=== PATIENT | male | born 1970 | race American Indian/Alaskan Native ===

== ENCOUNTER 2017-12-14 19:33 | Inpatient (IN) | payer OTHER ==
--- NOTE | 2017-12-14 20:45 | XRay Report ---
FINAL REPORT EXAM: XR KNEE BILAT 3V HISTORY: knee pain TECHNIQUE: Three views of the left knee PRIORS: None. FINDINGS: There is superior migration of the patella. Infrapatellar tendon is indistinct in wavy in appearance most consistent with tendon rupture. No acute fracture identified. No evidence for joint effusion. Tibiofemoral joint space is unremarkable. IMPRESSION: Findings consistent with rupture of the infrapatellar tendon with patella Khushboo
--- NOTE | 2017-12-14 21:12 | Emergency Department Report ---
HPI - General Chief Complaint: Pain General Time Seen by Provider: 12/14/17 19:56 - HPI HPI: 47-year-old -[place] male presents to the emergency department via EMS with complaint of bilateral knee pain and swelling. The patient was trying to push his car down the street when one of his knee suddenly gave way and he felt and heard a pop. Someone was helping him to move the car and this gentleman helped him off of the ground and he was trying to "walk it off." However when he started to try and push the car again, the other knee then gave way with another pop felt and heard. He received some morphine in route with some improvement. The pain mostly occurs when he is bending at the knee or moving his legs. He denies any other significant past medical history. ED Past Medical Hx - Past Medical History Previous Medical History?: No - Surgical History Past Surgical History?: No - Social History Smoking Status: Never Smoker ED Review of Systems ROS: Stated complaint: ASMITA KNEE PAIN Other details as noted in HPI Comment: All other systems reviewed and negative Constitutional: denies: chills, fever Eyes: denies: eye pain, eye discharge, vision change ENT: denies: ear pain, throat pain Respiratory: denies: cough, shortness of breath, wheezing Cardiovascular: denies: chest pain, palpitations Gastrointestinal: denies: abdominal pain, nausea, diarrhea Genitourinary: denies: urgency, dysuria Musculoskeletal: arthralgia. denies: back pain, joint swelling Skin: denies: rash, lesions Neurological: denies: headache, weakness, paresthesias Physical Exam - Physical Exam Vital Signs: Vital Signs 12/14/17 12/14/17 20:01 20:11 Temperature 98.6 F Pulse Rate 82 Respiratory 18 18 Rate Blood Pressure 105/54 Physical Exam: GENERAL: The patient is well-developed well-nourished. HENT: Normocephalic. Atraumatic. Patient has moist mucous membranes. EYES: Extraocular motions are intact. NECK: Supple. Trachea is midline. CHEST/LUNGS: Clear to auscultation. There is no respiratory distress noted. HEART/CARDIOVASCULAR: Regular. There is no tachycardia. There is no murmur. ABDOMEN: Abdomen is soft, nontender. Patient has normal bowel sounds. There is no abdominal distention. SKIN: Skin is warm and dry. There is some swelling to the bilateral anterior knees. NEURO: The patient is awake, alert, and oriented. The patient is cooperative. The patient has no focal neurologic deficits. The patient has normal speech and gait. MUSCULOSKELETAL: There is tenderness palpation to the bilateral knees. The patella appears to be very high riding bilaterally and is palpable above the femoral condyles. Negative anterior and posterior drawer test to the bilateral knees. There is no laxity with valgus or varus stress to the bilateral knees. Decreased range of motion of the bilateral lower extremities secondary to knee pain and specifically the patient has difficulty with extension of the lower legs. Pedal pulses intact. ED Course Vital Signs 12/14/17 12/14/17 20:01 20:11 Temperature 98.6 F Pulse Rate 82 Respiratory 18 18 Rate Blood Pressure 105/54 ED Medical Decision Making - Lab Data Result diagrams: 12/15/17 00:05 12/15/17 00:05 - Radiology Data Radiology results: image reviewed interpreted by me: X-ray of the bilateral knees does not show any fracture, dislocation but there is soft tissue swelling and the patella is very high riding and appears to be higher than the femoral epicondyles. All this together shows concern for infrapatellar tendon rupture. - Medical Decision Making Patient presented with some knee pain and swelling after he was trying to push his car and this happened one knee at a time. On examination the patient has very high riding patellas and swelling. Negative drawer test and no laxity with valgus or varus stress. X-rays did not show any fracture or dislocation but once again the patellas are very high riding, superior to the femoral epicondyles, and this shows concern for infrapatellar tendon rupture. The patient does have difficulty with extension of the lower legs. He was placed in knee immobilizers and given crutches and we attempted to see if he could bear weight for standing or any type of ambulation but the patient is unable to do so. Therefore, the patient will be admitted to the hospital for an orthopedic consultation and pain control and further evaluation. He has been accepted for admission by the hospitalist, Dr. Crum. - Differential Diagnosis infrapatellar tendon rupture, knee sprain, fracture, dislocation Critical Care Time: No Critical care attestation.: If time is entered above; I have spent that time in minutes in the direct care of this critically ill patient, excluding procedure time. ED Disposition Clinical Impression: Patellar tendon rupture Qualifiers: Encounter type: initial encounter Laterality: unspecified laterality Qualified Code(s): S86.819A - Strain of other muscle(s) and tendon(s) at lower leg level, unspecified leg, initial encounter Knee pain Qualifiers: Chronicity: acute Laterality: bilateral Qualified Code(s): M25.561 - Pain in right knee; M25.562 - Pain in left knee Disposition: OP ADMIT IP TO THIS HOSP Is pt being admited?: Yes Condition: Stable Time of Disposition: 02:33
[2017-12-14] MEDS ORDERED: MORPHINE IV ONE (22:38)
--- NOTE | 2017-12-14 23:45 | History and Physical Report ---
History of Present Illness Date of examination: 12/14/17 History of present illness: 47-year-old male with no medical history continued emergency room because he was pushing his car after it stopped working, he heard a pop in the left knee. He had difficulty ambulating and shortly after he heard a pop in the right knee while still pushing the car hit patient is unable to bear weight Review of systems Constitutional: no weight loss, chills, fever Ears, eyes, nose, mouth and throat: no nasal congestion, no nasal discharge, no sinus pressure, no vision change, no red eye. Neck: No neck pain or rigidity. Cardiovascular: no chest pain, palpitations Respiratory: no cough, shortness of breath Gastrointestinal: no abdominal pain hematochezia Genitourinary : no frequency , no hematuria Musculoskeletal:+ joint swelling or muscle ache Integumentary: no rash, no pruritis Neurological: no parathesias, no numbness, no focal weakness Endocrine: no cold or heat intolerance, no polyuria or polydipsia Hematologic/Lymphatic: no easy bruising, no easy bleeding, no gland swelling Allergic/Immunologic: no urticaria, no angioedema. PAST MEDICAL HISTORY: None PAST SURGICAL HISTORY: None SOCIAL HISTORY: No alcohol, no drugs, smoke less than 1 pack a day FAMILY HISTORY: Hypertension Medications and Allergies Allergies Allergy/AdvReac Type Severity Reaction Status Date / Time avocado AdvReac Hives Verified 12/14/17 20:10 pollen extracts AdvReac Hives Verified 12/14/17 20:10 shellfish derived AdvReac Hives Verified 12/14/17 20:10 Exam - Physical Exam Narrative exam: Gen. appearance: Patient lying in bed, no apparent distress HEENT: Normocephalic, atraumatic, pupils equally round and reactive to light, extraocular movement intact, and no sclericterus,. No JVD or thyromegaly or nodule,neck supple, no carotid bruit ,mucous membranes moist, no exudate or erythema Heart: S1, S2, regular rate and rhythm Lungs: Clear bilaterally, breathing comfortable Abdomen: Positive bowel sounds, non-tender, nondistended, no organomegaly Extremity:b/l knees in a brace, no edema cyanosis, clubbing Skin: no rash, dry, warm Neuro: Oriented 3, cranial nerves II-12 intact, speech is fluent, motor and sensory intact - Constitutional Vitals: Temp Pulse Resp BP Pulse Ox 98.6 F 76 18 129/84 96 12/14/17 20:01 12/14/17 22:37 12/14/17 22:37 12/14/17 22:37 12/14/17 22:37 Results - Labs CBC & Chem 7: 12/17/17 04:50 12/17/17 04:50 Assessment and Plan xray of the knee reviewed Assessment Infrapatella tendon rupture Plan Admit to medicine Consults surgery, IV fluids, IV morphine and DVT prophalaxis
[2017-12-14] MEDS ORDERED: ZOFRAN IV PRN (23:56)
[2017-12-14] MEDS ORDERED: SODIUM CHLORIDE FLUSH SYRINGE 10 ML IV PRN (23:56)
[2017-12-14] MEDS ORDERED: TYLENOL PO PRN (23:56)
[2017-12-15 01:02] LABS: Eosinophils % (Auto) 0.5 % (0.0-4.3); Hematocrit 41.4 % (35.5-45.6); Hemoglobin 14.4 gm/dl (11.8-15.2); Lymphocytes % (Auto) 32.4 % (13.4-35.0); Mean Corpuscular HGB Conc 35 % (32-34); Mean Corpuscular Hemoglobin 30 pg (28-32); Mean Corpuscular Volume 86 fl (84-94); Monocytes % (Auto) 7.4 % (0.0-7.3); Platelet Count 228 K/mm3 (140-440); Red Blood Count 4.82 M/mm3 (3.65-5.03); Red Cell Distribution Width 15.5 % (13.2-15.2)
[2017-12-15 01:03] LABS: Basophils # (Auto) 0.1 K/mm3 (0.0-0.1); Basophils % (Auto) 0.5 % (0.0-1.8); Eosinophils # (Auto) 0.1 K/mm3 (0.0-0.4); Lymphocytes # (Auto) 3.5 K/mm3 (1.2-5.4); Monocytes # (Auto) 0.8 K/mm3 (0.0-0.8)
[2017-12-15 01:38] LABS: BUN/Creatinine Ratio 14; Blood Urea Nitrogen 10 mg/dL (9-20); Calcium 9.3 mg/dL (8.4-10.2); Hemolysis Index 4
[2017-12-15] MEDS: NACL 0.45% 1000 ML 1,000 ML IV SCH ×2 (04:18→22:00)
[2017-12-15 07:51] LABS: Basophils # (Auto) 0.1 K/mm3 (0.0-0.1); Basophils % (Auto) 0.5 % (0.0-1.8); Eosinophils # (Auto) 0.2 K/mm3 (0.0-0.4); Eosinophils % (Auto) 1.9 % (0.0-4.3); Hematocrit 41.7 % (35.5-45.6); Hemoglobin 14.1 gm/dl (11.8-15.2); Lymphocytes # (Auto) 3.9 K/mm3 (1.2-5.4); Mean Corpuscular HGB Conc 34 % (32-34); Mean Corpuscular Hemoglobin 29 pg (28-32); Mean Corpuscular Volume 87 fl (84-94); Monocytes # (Auto) 0.9 K/mm3 (0.0-0.8); Monocytes % (Auto) 8.7 % (0.0-7.3); Platelet Count 222 K/mm3 (140-440); Red Blood Count 4.81 M/mm3 (3.65-5.03); Red Cell Distribution Width 15.3 % (13.2-15.2)
[2017-12-15 08:05] LABS: BUN/Creatinine Ratio 13; Blood Urea Nitrogen 10 mg/dL (9-20); Calcium 8.8 mg/dL (8.4-10.2); Hemolysis Index 42
[2017-12-15] MEDS ORDERED: LOVENOX SUB-Q SCH (10:00)
[2017-12-15] MEDS: SODIUM CHLORIDE FLUSH SYRINGE 10 ML IV SCH ×2 (10:01→21:49)
[2017-12-15] MEDS: LOVENOX SUB-Q SCH (10:01)
--- NOTE | 2017-12-15 12:12 | Progress Note ---
Assessment and Plan Assessment and plan: --Infrapatella tendon rupture;Uriah: supportive care Pain management, orthopedic consulted, possible surgical repair today --Obesity; BMI 37.7, diet modification and exercise as tolerated and weight reduction when medically stable --Ongoing tobacco use; smoking cessation counseling done Advised nicotine patch as needed --Hypertension; partly secondary to pain, optimal pain management, when necessary hydralazine --DVT prophylaxis; Lovenox Follow ortho evaluation and recommendations 1 of care reviewed with the patient, his and his nurse, History Interval history: Patient seen and examined in his room this afternoon Medical records reviewed Patient complains of some pain, mild elevation of blood pressures Scheduled for surgery today Patient is alert awake oriented 3 Vital signs reviewed is at the bedside Hospitalist Physical - Constitutional Vitals: Temp Pulse Resp BP Pulse Ox 98.0 F 72 20 150/76 98 12/15/17 03:14 12/15/17 03:14 12/15/17 03:14 12/15/17 03:14 12/15/17 03:14 General appearance: Present: no acute distress, well-nourished, obese - EENT Eyes: Present: PERRL, EOM intact - Neck Neck: Present: supple, normal ROM - Respiratory Respiratory effort: normal Respiratory: bilateral: diminished, negative: rales, rhonchi, wheezing - Cardiovascular Rhythm: regular Heart Sounds: Present: S1 & S2 - Extremities Extremities: no ischemia, No edema - Abdominal General gastrointestinal: soft, non-tender, non-distended, normal bowel sounds - Integumentary Integumentary: Present: clear, warm - Psychiatric Psychiatric: appropriate mood/affect, cooperative - Neurologic Neurologic: CNII-XII intact, moves all extremities Results - Labs CBC & Chem 7: 12/15/17 07:12 12/15/17 07:12 Labs: Laboratory Last Values WBC 10.4 K/mm3 (4.5-11.0) 12/15/17 07:12 RBC 4.81 M/mm3 (3.65-5.03) 12/15/17 07:12 Hgb 14.1 gm/dl (11.8-15.2) 12/15/17 07:12 Hct 41.7 % (35.5-45.6) 12/15/17 07:12 MCV 87 fl (84-94) 12/15/17 07:12 MCH 29 pg (28-32) 12/15/17 07:12 MCHC 34 % (32-34) 12/15/17 07:12 RDW 15.3 % (13.2-15.2) H 12/15/17 07:12 Plt Count 222 K/mm3 (140-440) 12/15/17 07:12 Lymph % (Auto) 38.0 % (13.4-35.0) H 12/15/17 07:12 Atkinson % (Auto) 8.7 % (0.0-7.3) H 12/15/17 07:12 Eos % (Auto) 1.9 % (0.0-4.3) 12/15/17 07:12 Baso % (Auto) 0.5 % (0.0-1.8) 12/15/17 07:12 Lymph # 3.9 K/mm3 (1.2-5.4) 12/15/17 07:12 Atkinson # 0.9 K/mm3 (0.0-0.8) H 12/15/17 07:12 Eos # 0.2 K/mm3 (0.0-0.4) 12/15/17 07:12 Baso # 0.1 K/mm3 (0.0-0.1) 12/15/17 07:12 Seg Neutrophils % 50.9 % (40.0-70.0) 12/15/17 07:12 Seg Neutrophils # 5.3 K/mm3 (1.8-7.7) 12/15/17 07:12 Sodium 136 mmol/L (137-145) L 12/15/17 07:12 Potassium 3.9 mmol/L (3.6-5.0) 12/15/17 07:12 Chloride 99.7 mmol/L (98-107) 12/15/17 07:12 Carbon Dioxide 24 mmol/L (22-30) 12/15/17 07:12 Anion Gap 16 mmol/L 12/15/17 07:12 BUN 10 mg/dL (9-20) 12/15/17 07:12 Creatinine 0.8 mg/dL (0.8-1.5) 12/15/17 07:12 Estimated GFR > 60 ml/min 12/15/17 07:12 BUN/Creatinine Ratio 13 % 12/15/17 07:12 Glucose 137 mg/dL (75-100) H 12/15/17 07:12 Calcium 8.8 mg/dL (8.4-10.2) 12/15/17 07:12
[2017-12-15] MEDS ORDERED: APRESOLINE IV ONE (14:52)
--- NOTE | 2017-12-15 19:35 | Consultation ---
History of Present Illness - [facility] Consult date: 12/15/17 Consult reason: joint pain History of present illness: 47-year-old male who comes in complaining of bilateral knee pain and swelling patient states his car broke down and while in the process of pushing the car he felt a pop in 1 of his knees patient states that he continued on an subsequently had another episode of popping and pain in the other Leg. Because of the excruciating pain and lack of mobility patient presented to the emergency room where he was diagnosed with bilateral patellar tendon rupture patient states he was unable to place any weight and therefore was admitted for definitive care Medications and Allergies Allergies Allergy/AdvReac Type Severity Reaction Status Date / Time avocado AdvReac Hives Verified 12/14/17 20:10 pollen extracts AdvReac Hives Verified 12/14/17 20:10 shellfish derived AdvReac Hives Verified 12/14/17 20:10 Active Meds: Active Medications Acetaminophen (Tylenol) 650 mg PO Q4H PRN PRN Reason: Pain MILD(1-3)/Fever >100.5/LEIJA Enoxaparin Sodium (Lovenox) 40 mg SUB-Q QDAY@1000 [facility] Last Admin: 12/15/17 10:01 Dose: 40 mg Hydralazine HCl (Apresoline) 10 mg IV Q4HR PRN PRN Reason: Hypertension Sodium Chloride (Nacl 0.45% 1000 Ml) 1,000 mls @ 75 mls/hr IV DIRECT [facility] Last Admin: 12/15/17 04:18 Dose: 75 mls/hr Morphine Sulfate (Morphine) 2 mg IV Q4H PRN PRN Reason: Pain, Moderate (4-6) Ondansetron HCl (Zofran) 4 mg IV Q8H PRN PRN Reason: Nausea And Vomiting Sodium Chloride (Sodium Chloride Flush Syringe 10 Ml) 10 ml IV BID [facility] Last Admin: 12/15/17 10:01 Dose: 10 ml Sodium Chloride (Sodium Chloride Flush Syringe 10 Ml) 10 ml IV PRN PRN PRN Reason: LINE FLUSH Physical Examination - Physical exam Narrative exam: In the lower extremities he was noted to have 2+ joint effusions bilaterally at the knee there was tenderness to palpation and a palpable gap was noted in both knees patient is unable to actively extend his lower extremities distal neurovascular status is intact Plain x-rays from the emergency room were reviewed by me and show evidence of patella brandon on high riding the Eyes: PERRL ENT: Positive: clear oral mucosa Respiratory effort: normal Respiratory: bilateral: CTA Rhythm: regular Heart Sounds: Positive: S1 & S2 General gastrointestinal: Positive: soft, non-tender, non-distended, normal bowel sounds Integumentary: clear, warm, dry Neurologic: Positive: CNII-XII intact, moves all extremities, gait normal. Negative: focal deficits Assessment and Plan Bilateral patellar tendon ruptures He will require operative fixation to both knees
[2017-12-15] MEDS: MORPHINE IV PRN (21:48)
[2017-12-15] MEDS: APRESOLINE IV PRN (21:56)
--- NOTE | 2017-12-15 23:06 | Anesthesia Consultation ---
Anesthesia Consult and Med Hx Date of service: 12/15/17 - Airway Anesthetic Teeth Evaluation: Poor (missing upper incisor, few loose molars) ROM Head & Neck: Adequate Mental/Hyoid Distance: Adequate Mallampati Class: Class II Intubation Access Assessment: Probably Good - Pulmonary Exam CTA: Yes - Cardiac Exam Cardiac Exam: RRR - Pre-Operative Health Status ASA Pre-Surgery Classification: ASA2 Proposed Anesthetic Plan: General - Pulmonary Hx Smoking: Yes (1ppd x 20yrs) Hx Asthma: No COPD: No Hx Pneumonia: No - Central Nervous System Hx Psychiatric Problems: No - Endocrine Hx End Stage Renal Disease: No - Other Systems Hx Obesity: Yes
[2017-12-16] MEDS ORDERED: BENADRYL IV NR (09:41)
[2017-12-16] MEDS: LOVENOX SUB-Q SCH (10:00)
[2017-12-16] MEDS ORDERED: LACTATED RINGERS 1,000 ML IV SCH (10:00)
[2017-12-16] MEDS ORDERED: VERSED IV NR (10:00)
[2017-12-16] MEDS ORDERED: PEPCID IV NR (10:00)
[2017-12-16] MEDS ORDERED: ZOFRAN IV PRN (10:27)
--- NOTE | 2017-12-16 10:28 | Anesthesia Day of Surgery ---
Anesthesia Day of Surgery - Day of Surgery Patient Examined: Yes Patient H&P Reviewed: Yes Patient is NPO: Yes
--- NOTE | 2017-12-16 10:29 | Anesthesia Consultation ---
Anesthesia Consult and Med Hx Date of service: 12/16/17 - Airway Anesthetic Teeth Evaluation: Good ROM Head & Neck: Adequate Mental/Hyoid Distance: Adequate Mallampati Class: Class III Intubation Access Assessment: Possibly Difficult - Pulmonary Exam CTA: Yes - Cardiac Exam Cardiac Exam: RRR - Pre-Operative Health Status ASA Pre-Surgery Classification: ASA3 Proposed Anesthetic Plan: General - Pulmonary Hx Smoking: Yes (1ppd x 20yrs) Hx Asthma: No COPD: No Hx Pneumonia: No - Central Nervous System Hx Psychiatric Problems: No - Endocrine Hx End Stage Renal Disease: No - Other Systems Hx Obesity: Yes
--- NOTE | 2017-12-16 11:45 | Progress Note ---
Assessment and Plan Assessment and plan: --Infrapatella tendon rupture;Uriah: Surgical repair scheduled for today per ortho Pain management, IV fluids and supportive care --Obesity; BMI 37.7, diet modification and exercise as tolerated and weight reduction when medically stable --Ongoing tobacco use; smoking cessation counseling done, Advised nicotine patch as needed --Hypertension; partly secondary to pain, optimal pain management, when necessary hydralazine --DVT prophylaxis; Lovenox Patient will receive physical therapy occupational therapy postprocedure DC planning; home with home health versus acute rehabilitation as needed Plan of care reviewed with the patient and his at the bedside History Interval history: Patient seen and examined medical records reviewed Scheduled for orthopedic surgery today for infrapatellar tendon rupture repair Complains of some pain No new events reported by the nursing Vitals review Hospitalist Physical - Constitutional Vitals: Temp Pulse Resp BP Pulse Ox 99 F 71 18 123/72 97 12/16/17 09:35 12/16/17 09:35 12/16/17 09:35 12/16/17 09:35 12/16/17 09:35 General appearance: Present: no acute distress, well-nourished, obese - EENT Eyes: Present: PERRL, EOM intact - Neck Neck: Present: supple, normal ROM - Respiratory Respiratory effort: normal Respiratory: bilateral: diminished, negative: rales, rhonchi, wheezing - Cardiovascular Rhythm: regular Heart Sounds: Present: S1 & S2 - Extremities Extremities: no ischemia, No edema - Abdominal General gastrointestinal: soft, non-tender, non-distended, normal bowel sounds - Integumentary Integumentary: Present: clear, warm - Psychiatric Psychiatric: appropriate mood/affect, cooperative - Neurologic Neurologic: CNII-XII intact, moves all extremities Results - Labs CBC & Chem 7: 12/15/17 07:12 12/15/17 07:12 Labs: Laboratory Last Values WBC 10.4 K/mm3 (4.5-11.0) 12/15/17 07:12 RBC 4.81 M/mm3 (3.65-5.03) 12/15/17 07:12 Hgb 14.1 gm/dl (11.8-15.2) 12/15/17 07:12 Hct 41.7 % (35.5-45.6) 12/15/17 07:12 MCV 87 fl (84-94) 12/15/17 07:12 MCH 29 pg (28-32) 12/15/17 07:12 MCHC 34 % (32-34) 12/15/17 07:12 RDW 15.3 % (13.2-15.2) H 12/15/17 07:12 Plt Count 222 K/mm3 (140-440) 12/15/17 07:12 Lymph % (Auto) 38.0 % (13.4-35.0) H 12/15/17 07:12 Hancock % (Auto) 8.7 % (0.0-7.3) H 12/15/17 07:12 Eos % (Auto) 1.9 % (0.0-4.3) 12/15/17 07:12 Baso % (Auto) 0.5 % (0.0-1.8) 12/15/17 07:12 Lymph # 3.9 K/mm3 (1.2-5.4) 12/15/17 07:12 Hancock # 0.9 K/mm3 (0.0-0.8) H 12/15/17 07:12 Eos # 0.2 K/mm3 (0.0-0.4) 12/15/17 07:12 Baso # 0.1 K/mm3 (0.0-0.1) 12/15/17 07:12 Seg Neutrophils % 50.9 % (40.0-70.0) 12/15/17 07:12 Seg Neutrophils # 5.3 K/mm3 (1.8-7.7) 12/15/17 07:12 Sodium 136 mmol/L (137-145) L 12/15/17 07:12 Potassium 3.9 mmol/L (3.6-5.0) 12/15/17 07:12 Chloride 99.7 mmol/L (98-107) 12/15/17 07:12 Carbon Dioxide 24 mmol/L (22-30) 12/15/17 07:12 Anion Gap 16 mmol/L 12/15/17 07:12 BUN 10 mg/dL (9-20) 12/15/17 07:12 Creatinine 0.8 mg/dL (0.8-1.5) 12/15/17 07:12 Estimated GFR > 60 ml/min 12/15/17 07:12 BUN/Creatinine Ratio 13 % 12/15/17 07:12 Glucose 137 mg/dL (75-100) H 12/15/17 07:12 Calcium 8.8 mg/dL (8.4-10.2) 12/15/17 07:12
[2017-12-16] MEDS ORDERED: MARCAINE 0.5% INFILTRATI ONE ×2 (14:04→14:26)
[2017-12-16] MEDS ORDERED: NACL 0.9% 250ML 250 ML ONE (14:05)
[2017-12-16] MEDS ORDERED: MORPHINE ONE (14:05)
[2017-12-16] MEDS ORDERED: TORADOL ONE ×2 (14:05→16:55)
[2017-12-16] MEDS ORDERED: NACL 0.9% IR ONE (14:26)
[2017-12-16] MEDS ORDERED: MORPHINE IM ONE (14:26)
[2017-12-16] MEDS ORDERED: SUBLIMAZE ONE (14:39)
[2017-12-16] MEDS ORDERED: VERSED ONE (14:42)
[2017-12-16] MEDS ORDERED: XYLOCAINE MPF 2% ONE (14:42)
[2017-12-16] MEDS ORDERED: DIPRIVAN 10 MG/ML IV ONE (14:43)
[2017-12-16] MEDS ORDERED: LACTATED RINGERS 1,000 ML ONE ×2 (14:58→16:41)
[2017-12-16] MEDS ORDERED: DILAUDID ONE (15:25)
[2017-12-16] MEDS ORDERED: SODIUM CHLORIDE FLUSH SYRINGE 10 ML IV NR (17:00)
--- NOTE | 2017-12-16 17:00 | Procedure Note ---
Date of procedure: 12/16/17 Pre-op diagnosis: bilateral patellar tendon ruptures Post-op diagnosis: same Procedure: Bilateral repair of ruptured patellar tendons Procedure The patient was brought to the OR placed aortic table in supine position following induction and intubation anesthesia the patient's lower extremities were prepped and draped in the usual sterile manner timeout procedure was done to identify the patient and the correct operative sites. The right lower extremity was approached first the leg was exsanguinated followed by inflation of the pneumatic tourniquet to 300 mmHg a midline incision was made superior to the patella and was taken down distally towards the tibial tubercle incision was then taken deep through skin and subcutaneous the patella tendon was seen and appeared ruptured at the insertion into the inferior pole it had a typical mop handle appearance along with tears in the medial and lateral retinacula the wound was irrigated and the hematoma evacuated A #5 Ethibond suture was used to repair the ruptured patellar tendon starting at the inferior aspect of the patella tendon #5 suture was then removed through the tendon to create a nice construct to advance through the patella using a 2.7 drill bit 2 tunnels were placed into the patella and the #5 Ethibond suture was advanced and sewn into place with the knee in full extension The patella retinacula were repaired laterally with #1 Vicryl suture the deep subcutaneous tissue as well as superficial were closed in a standard fashion a zip line suture was applied to the external surface routine postoperative dressings were applied The left lower extremity was approached again the leg was exsanguinated followed by inflation of the pneumatic tourniquet to 300 mmHg using a similar midline incision from the superior pole down to the tibial tubercle incision was carried down deep to the retropatellar tendon was identified and the hematoma was evacuated though the was irrigated with saline solution again #5 Ethibond suture was placed in the patellar tendon and brought out proximally a 2.7 drill bit was used to create our tunnels through the patella and the patellar tendon was then advanced into the patella inferior pole and was tied superiorly with the knee in extension the mediolateral patella retinacula were repaired using # 1 Vicryl followed by closure of the deep and superficial tissues in a routine fashion zip line suture was used followed by application of a routine postoperative dressings the patient was placed and bilateral knee immobilizers with the knee in full extension and was extubated and was taken to postanesthesia recovery in stable condition Anesthesia: CARISSA Surgeon: IZABELLA HEMPHILL Medical Claims Assistant: KARIME GUEVARA Estimated blood loss: 50-100ml Pathology: none Condition: stable Disposition: PACU
[2017-12-16] MEDS: DILAUDID IV PRN ×3 (17:27→17:50)
[2017-12-16] MEDS: ANCEF/NS 1 GM/50 ML 1 GM/50 ML BAG IV SCH (18:30)
[2017-12-16] MEDS: SODIUM CHLORIDE FLUSH SYRINGE 10 ML IV SCH ×2 (19:25→22:32)
[2017-12-16] MEDS: MORPHINE IV PRN ×2 (19:31→22:31)
[2017-12-17] MEDS: ANCEF/NS 1 GM/50 ML 1 GM/50 ML BAG IV SCH (02:10)
[2017-12-17] MEDS: MORPHINE IV PRN ×3 (02:56→10:13)
[2017-12-17 05:26] LABS: Basophils % (Auto) 0.2 % (0.0-1.8); Eosinophils % (Auto) 0.1 % (0.0-4.3); Hematocrit 37.9 % (35.5-45.6); Hemoglobin 12.6 gm/dl (11.8-15.2); Lymphocytes # (Auto) 3.4 K/mm3 (1.2-5.4); Lymphocytes % (Auto) 24.4 % (13.4-35.0); Mean Corpuscular HGB Conc 33 % (32-34); Mean Corpuscular Hemoglobin 28 pg (28-32); Mean Corpuscular Volume 86 fl (84-94); Monocytes # (Auto) 1.5 K/mm3 (0.0-0.8); Monocytes % (Auto) 10.7 % (0.0-7.3); Platelet Count 207 K/mm3 (140-440); Red Blood Count 4.43 M/mm3 (3.65-5.03); Red Cell Distribution Width 15.4 % (13.2-15.2)
[2017-12-17 05:41] LABS: BUN/Creatinine Ratio 11; Blood Urea Nitrogen 10 mg/dL (9-20); Calcium 8.6 mg/dL (8.4-10.2); Hemolysis Index 12
[2017-12-17] MEDS: APRESOLINE IV PRN (06:29)
[2017-12-17] MEDS: LOVENOX SUB-Q SCH (10:13)
[2017-12-17] MEDS: SODIUM CHLORIDE FLUSH SYRINGE 10 ML IV SCH ×2 (10:33→22:29)
[2017-12-17] MEDS: BENADRYL PO PRN ×2 (10:40→19:19)
[2017-12-17] MEDS: LACTATED RINGERS 1,000 ML IV SCH (12:38)
--- NOTE | 2017-12-17 13:27 | Progress Note ---
Assessment and Plan Assessment and plan: --Infrapatella tendon rupture;Uriah: Repair of bilateral patellar tendon rupture, Continue postop care, pain management, physical therapy occupational therapy --Obesity; BMI 37.7, diet modification and exercise as tolerated and weight reduction when medically stable --Ongoing tobacco use; smoking cessation counseling done, Advised nicotine patch as needed --Hypertension; moderate control, optimal pain management, antihypertensives, when necessary hydralazine --DVT prophylaxis; Lovenox Continue physical therapy occupational therapy DC planning; home with home health versus acute rehabilitation as needed Plan of care reviewed with the patient and his at the bedside History Interval history: Sincerely and examined this morning medical records reviewed Status post bilateral patellar tendon rupture repairs Continue postoperative care Complains of some pain Alert awake oriented 3 Vital signs reviewed Hospitalist Physical - Constitutional Vitals: Temp Pulse Resp BP Pulse Ox 99.3 F 92 H 20 175/89 96 12/17/17 12:00 12/17/17 12:00 12/17/17 10:43 12/17/17 12:00 12/17/17 07:00 General appearance: Present: no acute distress, well-nourished, obese - EENT Eyes: Present: PERRL, EOM intact - Neck Neck: Present: supple, normal ROM - Respiratory Respiratory effort: normal Respiratory: bilateral: diminished, negative: rales, rhonchi, wheezing - Cardiovascular Rhythm: regular Heart Sounds: Present: S1 & S2 - Extremities Extremities: no ischemia, No edema, abnormal (post op changes bilateral knee) - Abdominal General gastrointestinal: soft, non-tender, non-distended, normal bowel sounds - Integumentary Integumentary: Present: clear, warm - Psychiatric Psychiatric: appropriate mood/affect, cooperative - Neurologic Neurologic: CNII-XII intact, moves all extremities Results - Labs CBC & Chem 7: 12/17/17 04:50 12/17/17 04:50 Labs: Laboratory Last Values WBC 14.0 K/mm3 (4.5-11.0) H 12/17/17 04:50 RBC 4.43 M/mm3 (3.65-5.03) 12/17/17 04:50 Hgb 12.6 gm/dl (11.8-15.2) 12/17/17 04:50 Hct 37.9 % (35.5-45.6) 12/17/17 04:50 MCV 86 fl (84-94) 12/17/17 04:50 MCH 28 pg (28-32) 12/17/17 04:50 MCHC 33 % (32-34) 12/17/17 04:50 RDW 15.4 % (13.2-15.2) H 12/17/17 04:50 Plt Count 207 K/mm3 (140-440) 12/17/17 04:50 Lymph % (Auto) 24.4 % (13.4-35.0) 12/17/17 04:50 [place] % (Auto) 10.7 % (0.0-7.3) H 12/17/17 04:50 Eos % (Auto) 0.1 % (0.0-4.3) 12/17/17 04:50 Baso % (Auto) 0.2 % (0.0-1.8) 12/17/17 04:50 Lymph # 3.4 K/mm3 (1.2-5.4) 12/17/17 04:50 [place] # 1.5 K/mm3 (0.0-0.8) H 12/17/17 04:50 Eos # 0.0 K/mm3 (0.0-0.4) 12/17/17 04:50 Baso # 0.0 K/mm3 (0.0-0.1) 12/17/17 04:50 Seg Neutrophils % 64.6 % (40.0-70.0) 12/17/17 04:50 Seg Neutrophils # 9.0 K/mm3 (1.8-7.7) H 12/17/17 04:50 Sodium 135 mmol/L (137-145) L 12/17/17 04:50 Potassium 4.0 mmol/L (3.6-5.0) 12/17/17 04:50 Chloride 97.5 mmol/L (98-107) L 12/17/17 04:50 Carbon Dioxide 24 mmol/L (22-30) 12/17/17 04:50 Anion Gap 18 mmol/L 12/17/17 04:50 BUN 10 mg/dL (9-20) 12/17/17 04:50 Creatinine 0.9 mg/dL (0.8-1.5) 12/17/17 04:50 Estimated GFR > 60 ml/min 12/17/17 04:50 BUN/Creatinine Ratio 11 % 12/17/17 04:50 Glucose 108 mg/dL (75-100) H 12/17/17 04:50 Calcium 8.6 mg/dL (8.4-10.2) 12/17/17 04:50 Magnesium 1.70 mg/dL (1.7-2.3) 12/17/17 04:50
[2017-12-17] MEDS: PERCOCET 5/325 PO PRN ×2 (13:50→20:42)
--- NOTE | 2017-12-17 20:10 | Progress Note ---
Subjective Date of service: 12/17/17 Interval history: Patient is awake and alert. He has no anesthetic related complaints. Objective - Constitutional Vitals: Vital Signs - 12hr 12/17/17 12/17/17 12/17/17 10:00 10:13 10:43 Temperature Pulse Rate Respiratory 20 20 Rate Blood Pressure Blood Pressure [Right] O2 Sat by Pulse 96 Oximetry 12/17/17 12/17/17 12/17/17 10:51 12:00 13:50 Temperature 99.3 F 99.3 F Pulse Rate 98 H 92 H Respiratory 22 20 Rate Blood Pressure 175/89 Blood Pressure 175/89 [Right] O2 Sat by Pulse 100 Oximetry 12/17/17 12/17/17 12/17/17 14:50 15:19 19:09 Temperature 99.6 F 102.2 F H Pulse Rate 104 H 118 H Respiratory 20 20 20 Rate Blood Pressure 153/78 137/68 Blood Pressure [Right] O2 Sat by Pulse 96 97 Oximetry - Labs CBC & Chem 7: 12/17/17 04:50 12/17/17 04:50 Labs: Abnormal lab results 12/17/17 12/17/17 Range/Units 04:50 04:50 WBC 14.0 H (4.5-11.0) K/mm3 RDW 15.4 H (13.2-15.2) % [place] % (Auto) 10.7 H (0.0-7.3) % [place] # 1.5 H (0.0-0.8) K/mm3 Seg Neutrophils # 9.0 H (1.8-7.7) K/mm3 Sodium 135 L (137-145) mmol/L Chloride 97.5 L (98-107) mmol/L Glucose 108 H (75-100) mg/dL
[2017-12-17] MEDS ORDERED: VANCOMYCIN/NS 1 GM/250 ML 1 GM/250 ML BAG IV SCH (21:00)
[2017-12-17] MEDS ORDERED: VANCOMYCIN PHARMACY TO DOSE IV SCH (21:00)
[2017-12-17] MEDS ORDERED: VANCOMYCIN 2,000 MG in NACL 0.9% 500 ML 500 ML IV ONE (21:00)
[2017-12-18] MEDS: BENADRYL PO PRN ×4 (00:27→22:51)
[2017-12-18] MEDS: LACTATED RINGERS 1,000 ML IV SCH (02:43)
[2017-12-18] MEDS ORDERED: VANCOMYCIN 1,750 MG in NACL 0.9% 500 ML 500 ML IV SCH (10:00)
[2017-12-18] MEDS: LOVENOX SUB-Q SCH (10:03)
--- NOTE | 2017-12-18 11:09 | Progress Note ---
Assessment and Plan Assessment and plan: --Febrile illness; resolved Antipyretics, blood and urine cultures, check chest x-ray to rule out UTI/ pneumonia and pneumonitis Empiric antibiotics patient is already received 1 dose of Vanco Febrile again will give empiric antibiotics with Levaquin --Rash/allergic reaction; possible to Percocet, DC Percocet give ibuprofen Antihistamine and steroid --Infrapatella tendon rupture;Uriah: Repair of bilateral patellar tendon rupture, Continue postop care, pain management, physical therapy occupational therapy --Obesity; BMI 37.7, diet modification and exercise as tolerated and weight reduction when medically stable --Ongoing tobacco use; smoking cessation counseling done, Advised nicotine patch as needed --Hypertension; moderate control, optimal pain management, antihypertensives, when necessary hydralazine --DVT prophylaxis; Lovenox Continue physical therapy occupational therapy DC planning; home with home health versus acute rehabilitation as needed Plan of care reviewed with the patient and his at the bedside History Interval history: Patient Seen and examined medical records reviewed Patient feels better spiked a fever this morning now afebrile Patient received 1 dose of vancomycin Percocet, developed rash and whelps Received Benadryl with mild improvement Patient feels slightly better no new complaints Vital signs reviewed Hospitalist Physical - Constitutional Vitals: Temp Pulse Resp BP Pulse Ox 99.1 F 92 H 20 132/82 95 12/18/17 07:04 12/18/17 07:00 12/18/17 07:04 12/18/17 07:04 12/18/17 07:00 General appearance: Present: no acute distress, well-nourished, obese, other ( rash all over the body, reaction to ? Percocet) - EENT Eyes: Present: PERRL, EOM intact ENT: hearing intact, clear oral mucosa - Neck Neck: Present: supple, normal ROM - Respiratory Respiratory effort: normal Respiratory: negative: rales, rhonchi, wheezing - Cardiovascular Rhythm: regular Heart Sounds: Present: S1 & S2 - Extremities Extremities: no ischemia, pulses intact, No edema - Abdominal General gastrointestinal: soft, non-tender, non-distended, normal bowel sounds - Integumentary Integumentary: Present: rash (all over the body with whelps) - Psychiatric Psychiatric: appropriate mood/affect, cooperative - Neurologic Neurologic: moves all extremities Results - Labs CBC & Chem 7: 12/17/17 04:50 12/17/17 04:50 Labs: Laboratory Last Values WBC 14.0 K/mm3 (4.5-11.0) H 12/17/17 04:50 RBC 4.43 M/mm3 (3.65-5.03) 12/17/17 04:50 Hgb 12.6 gm/dl (11.8-15.2) 12/17/17 04:50 Hct 37.9 % (35.5-45.6) 12/17/17 04:50 MCV 86 fl (84-94) 12/17/17 04:50 MCH 28 pg (28-32) 12/17/17 04:50 MCHC 33 % (32-34) 12/17/17 04:50 RDW 15.4 % (13.2-15.2) H 12/17/17 04:50 Plt Count 207 K/mm3 (140-440) 12/17/17 04:50 Lymph % (Auto) 24.4 % (13.4-35.0) 12/17/17 04:50 [place] % (Auto) 10.7 % (0.0-7.3) H 12/17/17 04:50 Eos % (Auto) 0.1 % (0.0-4.3) 12/17/17 04:50 Baso % (Auto) 0.2 % (0.0-1.8) 12/17/17 04:50 Lymph # 3.4 K/mm3 (1.2-5.4) 12/17/17 04:50 [place] # 1.5 K/mm3 (0.0-0.8) H 12/17/17 04:50 Eos # 0.0 K/mm3 (0.0-0.4) 12/17/17 04:50 Baso # 0.0 K/mm3 (0.0-0.1) 12/17/17 04:50 Seg Neutrophils % 64.6 % (40.0-70.0) 12/17/17 04:50 Seg Neutrophils # 9.0 K/mm3 (1.8-7.7) H 12/17/17 04:50 Sodium 135 mmol/L (137-145) L 12/17/17 04:50 Potassium 4.0 mmol/L (3.6-5.0) 12/17/17 04:50 Chloride 97.5 mmol/L (98-107) L 12/17/17 04:50 Carbon Dioxide 24 mmol/L (22-30) 12/17/17 04:50 Anion Gap 18 mmol/L 12/17/17 04:50 BUN 10 mg/dL (9-20) 12/17/17 04:50 Creatinine 0.9 mg/dL (0.8-1.5) 12/17/17 04:50 Estimated GFR > 60 ml/min 12/17/17 04:50 BUN/Creatinine Ratio 11 % 12/17/17 04:50 Glucose 108 mg/dL (75-100) H 12/17/17 04:50 Calcium 8.6 mg/dL (8.4-10.2) 12/17/17 04:50 Magnesium 1.70 mg/dL (1.7-2.3) 12/17/17 04:50
[2017-12-18] MEDS: PERCOCET 5/325 PO PRN (12:40)
--- NOTE | 2017-12-18 17:51 | Progress Note ---
Assessment and Plan Status post repair of bilateral patella tendon ruptures Severe mobility restrictions secondary to patella tendon repairs Continue physical therapy hopefully discharged on with necessary DME's for optimal functioning at home Subjective Date of service: 12/18/17 Interval history: Patient got up with physical therapy today currently complaining of hives patient has a past history of allergies Objective Vital signs: Vital Signs - 12hr 12/18/17 12/18/17 12/18/17 07:00 07:04 11:05 Temperature 99.1 F 99.1 F 99.1 F Pulse Rate 92 H 96 H Respiratory 20 20 20 Rate Blood Pressure 132/82 146/84 Blood Pressure 132/82 [Right] O2 Sat by Pulse 95 100 Oximetry 12/18/17 15:00 Temperature 99.6 F Pulse Rate 91 H Respiratory 20 Rate Blood Pressure Blood Pressure 158/88 [Right] O2 Sat by Pulse 99 Oximetry Narrative Exam: Both lower extremities - knee immobilizers intact compartments soft negative Drew's sign - Labs CBC & BMP: 12/17/17 04:50 12/17/17 04:50
[2017-12-18] MEDS: SODIUM CHLORIDE FLUSH SYRINGE 10 ML IV SCH (20:22)
[2017-12-18] MEDS: MOTRIN PO PRN (20:23)
[2017-12-18] MEDS ORDERED: DECADRON PO SCH (22:00)
[2017-12-19] MEDS: LACTATED RINGERS 1,000 ML IV SCH (00:35)
[2017-12-19] MEDS: SODIUM CHLORIDE FLUSH SYRINGE 10 ML IV SCH ×3 (00:58→21:54)
[2017-12-19] MEDS: BENADRYL PO PRN (05:04)
--- NOTE | 2017-12-19 07:41 | XRay Report ---
FINAL REPORT EXAM: XR CHEST ROUTINE 2V HISTORY: fever/ r/o Pneumonia TECHNIQUE: PA and lateral views of the chest were submitted. FINDINGS: Heart size and mediastinum appear normal. The lungs are clear. Pleural fluid is not seen. The skeletal structures appear well maintained. IMPRESSION: No acute cardiopulmonary process.
[2017-12-19 07:55] LABS: Basophils % (Auto) 0.2 % (0.0-1.8); Hematocrit 37.5 % (35.5-45.6); Hemoglobin 12.5 gm/dl (11.8-15.2); Lymphocytes # (Auto) 1.6 K/mm3 (1.2-5.4); Lymphocytes % (Auto) 13.2 % (13.4-35.0); Mean Corpuscular HGB Conc 33 % (32-34); Mean Corpuscular Hemoglobin 29 pg (28-32); Mean Corpuscular Volume 87 fl (84-94); Monocytes # (Auto) 0.6 K/mm3 (0.0-0.8); Monocytes % (Auto) 5.2 % (0.0-7.3); Platelet Count 239 K/mm3 (140-440); Red Blood Count 4.32 M/mm3 (3.65-5.03); Red Cell Distribution Width 14.9 % (13.2-15.2)
[2017-12-19 07:57] LABS: BUN/Creatinine Ratio 13; Blood Urea Nitrogen 9 mg/dL (9-20); Calcium 9.4 mg/dL (8.4-10.2); Hemolysis Index 4
[2017-12-19] MEDS ORDERED: DELTASONE PO SCH (10:00)
[2017-12-19] MEDS ORDERED: LEVAQUIN PO SCH (10:00)
[2017-12-19] MEDS: MOTRIN PO PRN ×2 (10:22→17:42)
[2017-12-19] MEDS: LOVENOX SUB-Q SCH (10:22)
--- NOTE | 2017-12-19 17:39 | Progress Note ---
Assessment and Plan Status post repair of bilateral patellar tendon ruptures Doing well otherwise Patient may be discharged once hospital bed and DME items arrive follow back in my office in 1 week Subjective Date of service: 12/19/17 Interval history: No complaints noted patient states she is doing well with therapy awaiting hospital bed and other DME items prior to discharge Objective Vital signs: Vital Signs - 12hr 12/19/17 12/19/17 07:45 15:50 Temperature 97.6 F 98.5 F Pulse Rate 86 99 H Respiratory 20 20 Rate Blood Pressure 123/82 111/54 [Right] O2 Sat by Pulse 94 95 Oximetry - Labs CBC & BMP: 12/19/17 06:49 12/19/17 06:49 Labs: Abnormal lab results 12/19/17 12/19/17 Range/Units 06:49 06:49 WBC 12.4 H (4.5-11.0) K/mm3 Lymph % (Auto) 13.2 L (13.4-35.0) % Seg Neutrophils % 81.4 H (40.0-70.0) % Seg Neutrophils # 10.1 H (1.8-7.7) K/mm3 Creatinine 0.7 L (0.8-1.5) mg/dL Glucose 146 H (75-100) mg/dL
--- NOTE | 2017-12-19 18:16 | Progress Note ---
Assessment and Plan Assessment and plan: 47-year-old morbidly obese male patient sustained traumatic bilateral infrapatellar tendon rupture Status post repair, on postoperative care, PT OT, febrile MAXIMUM TEMPERATURE of 102,? Probably secondary to Percocet now resolved Tolerating PT OT, follow cultures, possible discharge in 1-2 days if stable --Infrapatella tendon rupture;Uriah: Repair of bilateral patellar tendon rupture, Continue postop care, pain management, physical therapy occupational therapy, ortho following Plan home with home health/DME --Febrile illness; resolved Antipyretics, follow blood and urine cultures, x-ray negative on Empiric Levaquin, fortification --Rash/allergic reaction; possible to Percocet, resolved --Obesity; BMI 37.7, counseled weight reduction when medically stable --Ongoing tobacco use; smoking cessation counseling done, nicotine patch as needed --Hypertension; moderate control, optimal pain management, antihypertensives, when necessary hydralazine --DVT prophylaxis; Lovenox Continue physical therapy occupational therapy DC planning; home with home health versus when medically stable And cleared by ortho Disposition; follow cultures, possible discharge in 1-2 days if stable at home health History Interval history: Patient seen and examined medical records reviewed Feels better no new complaints Had rash yesterday which completely disappeared Alert awake oriented 3 Tolerating physical therapy Vital signs reviewed, low-grade fever Hospitalist Physical - Constitutional Vitals: Temp Pulse Resp BP Pulse Ox 98.5 F 99 H 20 111/54 95 12/19/17 15:50 12/19/17 15:50 12/19/17 15:50 12/19/17 15:50 12/19/17 15:50 General appearance: Present: no acute distress, well-nourished, obese - EENT Eyes: Present: PERRL, EOM intact - Neck Neck: Present: supple, normal ROM - Respiratory Respiratory effort: normal Respiratory: bilateral: diminished, negative: rales, rhonchi, wheezing - Cardiovascular Rhythm: regular Heart Sounds: Present: S1 & S2 - Extremities Extremities: no ischemia, No edema - Abdominal General gastrointestinal: soft, non-tender, non-distended, normal bowel sounds - Integumentary Integumentary: Present: clear, warm - Psychiatric Psychiatric: appropriate mood/affect, cooperative - Neurologic Neurologic: CNII-XII intact, moves all extremities Results - Labs CBC & Chem 7: 07/16/18 06:49 07 06:49 Labs: Laboratory Last Values WBC 12.4 K/mm3 (4.5-11.0) H 12/19/17 06:49 RBC 4.32 M/mm3 (3.65-5.03) 12/19/17 06:49 Hgb 12.5 gm/dl (11.8-15.2) 12/19/17 06:49 Hct 37.5 % (35.5-45.6) 12/19/17 06:49 MCV 87 fl (84-94) 12/19/17 06:49 MCH 29 pg (28-32) 12/19/17 06:49 MCHC 33 % (32-34) 12/19/17 06:49 RDW 14.9 % (13.2-15.2) 12/19/17 06:49 Plt Count 239 K/mm3 (140-440) 12/19/17 06:49 Lymph % (Auto) 13.2 % (13.4-35.0) L 12/19/17 06:49 [place] % (Auto) 5.2 % (0.0-7.3) 12/19/17 06:49 Eos % (Auto) 0.0 % (0.0-4.3) 12/19/17 06:49 Baso % (Auto) 0.2 % (0.0-1.8) 12/19/17 06:49 Lymph # 1.6 K/mm3 (1.2-5.4) 12/19/17 06:49 [place] # 0.6 K/mm3 (0.0-0.8) 12/19/17 06:49 Eos # 0.0 K/mm3 (0.0-0.4) 12/19/17 06:49 Baso # 0.0 K/mm3 (0.0-0.1) 12/19/17 06:49 Seg Neutrophils % 81.4 % (40.0-70.0) H 12/19/17 06:49 Seg Neutrophils # 10.1 K/mm3 (1.8-7.7) H 12/19/17 06:49 Sodium 138 mmol/L (137-145) 12/19/17 06:49 Potassium 4.6 mmol/L (3.6-5.0) 12/19/17 06:49 Chloride 101.2 mmol/L (98-107) 12/19/17 06:49 Carbon Dioxide 25 mmol/L (22-30) 12/19/17 06:49 Anion Gap 16 mmol/L 12/19/17 06:49 BUN 9 mg/dL (9-20) 12/19/17 06:49 Creatinine 0.7 mg/dL (0.8-1.5) L 12/19/17 06:49 Estimated GFR > 60 ml/min 12/19/17 06:49 BUN/Creatinine Ratio 13 % 12/19/17 06:49 Glucose 146 mg/dL (75-100) H 12/19/17 06:49 Calcium 9.4 mg/dL (8.4-10.2) 12/19/17 06:49 Magnesium 1.70 mg/dL (1.7-2.3) 12/17/17 04:50
--- NOTE | 2017-12-19 18:30 | Event Note ---
Date: 12/19/17 As reported one bottle of gram-positive cocci positive cultures reported by chago Gonzalez, start vancomycin, repeat blood cultures, once the culture reports are entered May consult ID if needed, follow repeat cultures
[2017-12-19] MEDS ORDERED: VANCOMYCIN PHARMACY TO DOSE IV SCH (19:00)
[2017-12-19] MEDS ORDERED: VANCOMYCIN/NS 1 GM/250 ML 1 GM/250 ML BAG IV SCH (19:00)
[2017-12-19] MEDS: VANCOMYCIN 2,000 MG in NACL 0.9% 500 ML 500 ML IV SCH (21:54)
[2017-12-20] MEDS: VANCOMYCIN 2,000 MG in NACL 0.9% 500 ML 500 ML IV SCH ×2 (09:00→20:46)
[2017-12-20] MEDS: SODIUM CHLORIDE FLUSH SYRINGE 10 ML IV SCH ×2 (09:00→22:35)
[2017-12-20] MEDS: LOVENOX SUB-Q SCH (09:00)
--- NOTE | 2017-12-20 13:04 | Progress Note ---
Assessment and Plan Assessment and plan: 47-year-old morbidly obese male patient sustained traumatic bilateral infrapatellar tendon rupture Status post repair, on postoperative care, PT OT, Tolerating PT OT, follow cultures, possible discharge in 1-2 days if stable --Infrapatella tendon rupture;Uriah: Repair of bilateral patellar tendon rupture, Continue postop care, pain management, physical therapy occupational therapy, ortho following Plan home with home health/DME --Febrile illness; resolved Antipyretics, follow blood and urine cultures, x-ray negative on Empiric Levaquin, fortification --Rash/allergic reaction; possible to Percocet, resolved --Obesity; BMI 37.7, counseled weight reduction when medically stable --Ongoing tobacco use; smoking cessation counseling done, nicotine patch as needed --Hypertension; moderate control, optimal pain management, antihypertensives, when necessary hydralazine --DVT prophylaxis; Lovenox Continue physical therapy occupational therapy DC planning; home with home health versus when medically stable And cleared by ortho. If blood cultures negative by tomorrow, will dc home. If positive, will consult ID Physician Disposition; follow cultures, possible discharge in 1-2 days if stable at home health History Interval history: Less pain both knees at surgical sites, Hospitalist Physical - Physical exam Narrative exam: Constitutional; Not in acute distress, Obese HEENT: Atraumatic, normocephalic Neck: supple, no lymphadenopathy, JVD or thyromegaly Lungs: Clear to auscultation, bilaterally, no wheeze, no crackles CVS; S1-S2 regular, no murmurs, rubs or gallop, Abdomen; soft, non-tender, non distended,bowel sounds are normal, Musculoskeletal; Splint over both knees, dressing over knees 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, 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,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, no focal neurological signs - Constitutional Vitals: Temp Pulse Resp BP Pulse Ox 98.4 F 82 18 116/66 96 12/20/17 08:00 12/20/17 08:00 12/20/17 08:00 12/20/17 08:00 12/20/17 03:48 General appearance: Present: no acute distress, obese Results - Labs CBC & Chem 7: 12/19/17 06:49 12/19/17 06:49 Labs: Laboratory Last Values WBC 12.4 K/mm3 (4.5-11.0) H 07/16/18 06:49 RBC 4.32 M/mm3 (3.65-5.03) 12/19/17 06:49 Hgb 12.5 gm/dl (11.8-15.2) 12/19/17 06:49 Hct 37.5 % (35.5-45.6) 12/19/17 06:49 MCV 87 fl (84-94) 12/19/17 06:49 MCH 29 pg (28-32) 12/19/17 06:49 MCHC 33 % (32-34) 12/19/17 06:49 RDW 14.9 % (13.2-15.2) 12/19/17 06:49 Plt Count 239 K/mm3 (140-440) 12/19/17 06:49 Lymph % (Auto) 13.2 % (13.4-35.0) L 12/19/17 06:49 [place] % (Auto) 5.2 % (0.0-7.3) 12/19/17 06:49 Eos % (Auto) 0.0 % (0.0-4.3) 12/19/17 06:49 Baso % (Auto) 0.2 % (0.0-1.8) 12/19/17 06:49 Lymph # 1.6 K/mm3 (1.2-5.4) 12/19/17 06:49 [place] # 0.6 K/mm3 (0.0-0.8) 12/19/17 06:49 Eos # 0.0 K/mm3 (0.0-0.4) 12/19/17 06:49 Baso # 0.0 K/mm3 (0.0-0.1) 12/19/17 06:49 Seg Neutrophils % 81.4 % (40.0-70.0) H 12/19/17 06:49 Seg Neutrophils # 10.1 K/mm3 (1.8-7.7) H 12/19/17 06:49 Sodium 138 mmol/L (137-145) 12/19/17 06:49 Potassium 4.6 mmol/L (3.6-5.0) 12/19/17 06:49 Chloride 101.2 mmol/L (98-107) 12/19/17 06:49 Carbon Dioxide 25 mmol/L (22-30) 12/19/17 06:49 Anion Gap 16 mmol/L 12/19/17 06:49 BUN 9 mg/dL (9-20) 12/19/17 06:49 Creatinine 0.7 mg/dL (0.8-1.5) L 12/19/17 06:49 Estimated GFR > 60 ml/min 12/19/17 06:49 BUN/Creatinine Ratio 13 % 12/19/17 06:49 Glucose 146 mg/dL (75-100) H 12/19/17 06:49 Calcium 9.4 mg/dL (8.4-10.2) 12/19/17 06:49 Magnesium 1.70 mg/dL (1.7-2.3) 12/17/17 04:50
[2017-12-20] MEDS: MOTRIN PO PRN (14:46)
--- NOTE | 2017-12-20 19:09 | Progress Note ---
Assessment and Plan Continue physical therapy rehabilitation may discharge to home with follow-up appointment in the office and 7-10 days Subjective Date of service: 12/20/17 Objective Vital signs: Vital Signs - 12hr 12/20/17 08:00 Temperature 98.4 F Pulse Rate 82 Respiratory 18 Rate Blood Pressure 116/66 [Right] Narrative Exam: Dressing change to both knees today, no sign of infection noted - Labs CBC & BMP: 12/19/17 06:49 12/19/17 06:49
[2017-12-20 21:18] VITALS: BP 128/70
[2017-12-21] MEDS: VANCOMYCIN 2,000 MG in NACL 0.9% 500 ML 500 ML IV SCH (07:16)
[2017-12-21] MEDS: LOVENOX SUB-Q SCH ×2 (08:28→10:00)
--- NOTE | 2017-12-21 14:46 | Discharge Summary ---
Providers - Providers Date of Admission: 12/14/17 23:56 Date of discharge: 12/21/17 Attending physician: KARIME ESPINOZA 12/14/17 23:42 Consult to Physician [CONS] Routine Comment: COMPLETED - YANET Consulting Provider: IZABELLA CHAMBERS Physician Instructions: Reason For Exam: bilateral infrapatellar tendon rupture 12/16/17 17:03 Physical Therapy Evaluation and Treat [CONS] Routine Comment: knee immobilizers on at all times Reason For Exam: postop evaluation Weight bearing status?: Full wt bearing Assistive devices?: Yes If so list: Walker Primary care physician: JAYANT ALLISON Hospitalization Condition: Fair Disposition: DC-01 TO HOME OR SELFCARE Exam - Constitutional Vitals: Temp Pulse Resp BP Pulse Ox 98.6 F 71 16 128/70 98 12/20/17 21:03 12/20/17 21:03 12/20/17 21:03 12/20/17 21:03 12/20/17 21:03 Plan Activity: no restrictions Diet: low fat, low cholesterol, low salt Additional Instructions: 1.Follow up with PCP in 3-5 days. 2.Follow up with Dr. Chambers in 1 week Follow up with: JAYANT ALLISON MD [Primary Care Provider] - 3-5 Days
== END 2017-12-21 18:40 | disposition home health service (06) | DRG 489 ==
LOC: ED 19:33 → 3B-SURG 23:56
PROVIDERS: ADMIT Internal Medicine; ATTEND Internal Medicine
PROC: 0LQQ0ZZ Repair Right Knee Tendon, Open Approach (ICD-10-PCS; principal; 2017-12-16)
PROC: 0LQR0ZZ Repair Left Knee Tendon, Open Approach (ICD-10-PCS; 2017-12-16)
PROC: 0SCD0ZZ Extirpation of Matter from Left Knee Joint, Open Approach (ICD-10-PCS; 2017-12-16)
PROC: 0SCC0ZZ Extirpation of Matter from Right Knee Joint, Open Approach (ICD-10-PCS; 2017-12-16)
DX: S76.111A Strain of right quadriceps muscle, fascia and tendon, initial encounter (principal); S76.112A Strain of left quadriceps muscle, fascia and tendon, initial encounter; F17.200 Nicotine dependence, unspecified, uncomplicated; E66.01 Morbid (severe) obesity due to excess calories; W18.39XA Other fall on same level, initial encounter; T39.1X5A Adverse effect of 4-Aminophenol derivatives, initial encounter; I10 Essential (primary) hypertension; Z68.37 Body mass index [BMI] 37.0-37.9, adult; Y93.89 Activity, other specified; Y92.89 Other specified places as the place of occurrence of the external cause; Y99.8 Other external cause status; Z71.6 Tobacco abuse counseling; Z91.013 Allergy to seafood; Z82.49 Family history of ischemic heart disease and other diseases of the circulatory system
CPT/HCPCS: 36415; 71046; 80048; 83735; 85025; 87040; 87086; 96374; 96375; J0360; J0690; J1170; J1200; J1650; J1885; J2250; J2270; J2405; J2704; J2920; J3010; J3370; J7040; J7050; J7120; J7512